=== PATIENT | male | born 1995 | race Caucasian/White ===

== ENCOUNTER 2019-03-07 19:02 | Emergency (ER) | payer OTHER ==
[2019-03-07 19:13] VITALS: BP 152/84; PULSE 100; TEMP 98.2; BMI 27.1
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
== END 2019-03-07 19:47 | disposition home or self-care (01) ==
LOC: JERFT 19:02
DX: M79.601 Pain in right arm (principal); Y35.891A Legal intervention involving other specified means, law enforcement official injured, initial encounter; X58.XXXA Exposure to other specified factors, initial encounter; Y93.89 Activity, other specified; Y92.89 Other specified places as the place of occurrence of the external cause; Y99.0 Civilian activity done for income or pay
CPT/HCPCS: 99281-25

== ENCOUNTER 2019-12-20 06:12 | Emergency (ER) | payer BC, OTHER ==
[2019-12-20] MEDS ORDERED: DIPHTH,PERTUSS(ACELL),TET 0.5 ML DISP.SYRIN IM ONE ×2 (06:29→06:50)
[2019-12-20 06:32] VITALS: BMI 29.9
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
[2019-12-20] MEDS ORDERED: TETRACAINE 0.5% OPHTH SOLN 2 ML BOTTLE ONE (06:49)
[2019-12-20 07:14] LABS: BASO % 0.3 % (0-2.0); EOS % 0.6 % (0-4.5); HEMATOCRIT 48.6 % (35.4-49); HEMOGLOBIN 16.5 GM/dL (11.7-16.9); LYMPH % 19.5 % (8-40); MCH 31.1 pg (25.7-33.7); MEAN CELL VOLUME 91.4 fl (80-96); MONO % 6.6 % (3.8-10.2); PLATELET COUNT 194 K/MM3 (134-434); RBC 5.31 M/mm3 (4.00-5.60); RDW 13.4 % (11.9-15.9); WHITE BLOOD COUNT 8.8 K/mm3 (4.0-10.0)
[2019-12-20] MEDS ORDERED: AMPICILLIN NA/SULBACTAM NA 3 GM in SODIUM CHLORIDE 100 ML IVPB ONE (07:14)
[2019-12-20 07:28] LABS: ALBUMIN 4.4 g/dl (3.4-5.0); BILIRUBIN,TOTAL 0.4 mg/dL (0.2-1); BLOOD UREA NITROGEN 12.8 mg/dL (7-18); CALCIUM 9.2 mg/dL (8.5-10.1); CREATININE 1.1 mg/dL (0.55-1.3); POTASSIUM 4.1 mmol/L (3.5-5.1); TOT PROT 7.7 g/dl (6.4-8.2)
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
[2019-12-20 07:59] LABS: INR 0.97 (0.83-1.09); PROTHROMBIN TIME (PATIENT) 11.4 SEC (9.7-13.0)
[2019-12-20 08:01] LABS: ACTIVATED PTT 31.9 SECONDS (25.2-36.5)
[2019-12-20 10:20] VITALS: BP 125/67; PULSE 76; TEMP 98.2
--- NOTE | 2019-12-21 09:36 | EKG ---
Test Reason : Blood Pressure : / mmHG Vent. Rate : 075 BPM Atrial Rate : 075 BPM P-R Int : 158 ms QRS Dur : 102 ms QT Int : 382 ms P-R-T Axes : 059 055 031 degrees QTc Int : 426 ms NORMAL SINUS RHYTHM NORMAL ECG WHEN COMPARED WITH ECG OF 22-APR-2018 10:31, NO SIGNIFICANT CHANGE WAS FOUND Confirmed by Pawan Sy ([id number]) on 12/21/2019 9:35:59 AM Referred By: Confirmed By:Pawan Sy
== END 2019-12-20 10:33 | disposition home or self-care (01) ==
LOC: JER 06:12
PROC: 3E0234Z Introduction of Serum, Toxoid and Vaccine into Muscle, Percutaneous Approach (ICD-10-PCS; principal; 2019-12-20)
PROC: 3E03329 Introduction of Other Anti-infective into Peripheral Vein, Percutaneous Approach (ICD-10-PCS; 2019-12-20)
DX: S00.83XA Contusion of other part of head, initial encounter (principal); S00.11XA Contusion of right eyelid and periocular area, initial encounter; S00.81XA Abrasion of other part of head, initial encounter; S00.01XA Abrasion of scalp, initial encounter; S61.411A Laceration without foreign body of right hand, initial encounter; Y04.2XXA Assault by strike against or bumped into by another person, initial encounter; Y93.89 Activity, other specified; Y92.59 Other trade areas as the place of occurrence of the external cause; Y99.8 Other external cause status; Y07.6 Multiple perpetrators of maltreatment and neglect
CPT/HCPCS: 36415; 70450-TC; 70486-TC; 71045-TC-FY; 71260-TC; 72125-TC; 72170-TC-FY; 73110-TC-RT-FY; 73130-TC-RT-FY; 74177-TC; 80053; 85025; 85610; 85730; 86850; 86900; 86901; 90715; 93005; 93010; 99285-25; Q9967

== ENCOUNTER 2020-05-10 02:05 | Emergency (ER) | payer BC, OTHER ==
--- NOTE | 2020-05-10 02:10 | PDOC ---
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 Patient said there was a fair amount of blood and he got it on his hands and clothes. Patient denies getting any in his mouth nose face or eyes. Patient denies any open wounds on exposed surfaces where he came in contact with the blood. 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 No smoking. No alcohol. No illicit drugs. Surgical history: None General: No fevers or chills, no weakness, no weight loss HEENT: No change in vision. No sore throat,. No ear pain CardioVascular: no chest discomfort. No shortness of breath Respiratory:No cough, or wheezing. Gastrointestinal: no nausea, vomiting, diarrhea or constipation, No rectal bleeding Genitourinary: No dysuria, hematuria, or frequency Musculoskeletal: No joint or muscle pain or swelling Neurologic: No headache, vertigo, dizziness or loss of consciousness Psychiatric: nor depression Skin: No rashes or easy bruising Endocrine: no increased thirst or abnormal weight change Allergic: no skin or latex allergy All other systems reviewed and normal GENERAL: The patient is awake, alert, and fully oriented, in no acute distress. HEENT:Head is normal with no signs of trauma. Eyes: Pupils equal, round and reactive to light, Ears, and Throat are normal. Neck is supple. No Lymphadenopathy. EXTREMITIES:atraumatic, Normal range of motion, no edema. NEUROLOGICAL: Normal speech, normal gait. PSYCH: Normal mood, normal affect. SKIN: Warm, Dry, normal turgor, no rashes or lesions noted. 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 Patient discharged we will follow-up with the police surgeon as needed. HIV prophylaxis was not given as there was no exposure to mucous membranes or open wounds Past History - Medical History Allergies/Adverse Reactions: Allergies Allergy/AdvReac Type Severity Reaction Status Date / Time No Known Allergies Allergy Verified 03/07/19 19:11 Home Medications: Ambulatory Orders Amoxicillin/Potassium Clav [Augmentin 875-125 Tablet] 1 each PO BID #20 tablet 12/20/19 COPD: No - Immunization History Immunization Up to Date: Yes - Psycho-Social/Smoking History Smoking History: Never smoked Have you smoked in the past 12 months: No Discharge - Discharge Information Problems reviewed: Yes Clinical Impression/Diagnosis: Exposure to blood or body fluid Condition: Stable Disposition: HOME - Admission No - Follow up/Referral - Patient Discharge Instructions Additional Instructions: Return to the emergency department immediately with ANY new, persistent or worsening symptoms. Continue any medications as previously prescribed by your physician. You should follow up with your primary doctor as soon as possible regarding today's emergency department visit. . Please make sure your doctor reviews the results of your emergency evaluation. Thank you for coming to the Emergency Department today for your care. It was a pleasure to see you today. Please note that your evaluation is INCOMPLETE until you follow-up with your doctor. - Post Discharge Activity Work/Back to School Note: Back to Work
[2020-05-10 04:24] VITALS: BP 135/93; PULSE 80; TEMP 98.7; BMI 26.7
== END 2020-05-10 02:35 | disposition home or self-care (01) ==
LOC: FER 02:05
DX: Z77.21 Contact with and (suspected) exposure to potentially hazardous body fluids (principal)
CPT/HCPCS: 99282-25

== ENCOUNTER 2020-12-06 23:17 | Emergency (ER) | payer OTHER ==
[2020-12-06 23:21] VITALS: BP 124/76; PULSE 65; TEMP 98.8; BMI 29.0
== END 2020-12-07 00:17 | disposition home or self-care (01) ==
LOC: FER 23:17
DX: Z77.21 Contact with and (suspected) exposure to potentially hazardous body fluids (principal)
CPT/HCPCS: 99281-25

== ENCOUNTER 2021-01-21 19:50 | Emergency (ER) | payer OTHER ==
[2021-01-21 20:04] VITALS: BP 135/80; PULSE 96; TEMP 97.8; BMI 29.0
== END 2021-01-21 20:55 | disposition home or self-care (01) ==
LOC: FER 19:50
DX: S46.912A Strain of unspecified muscle, fascia and tendon at shoulder and upper arm level, left arm, initial encounter (principal); Y04.8XXA Assault by other bodily force, initial encounter
CPT/HCPCS: 99282-25

== ENCOUNTER 2022-01-15 00:24 | Emergency (ER) | payer OTHER ==
[2022-01-15 00:43] VITALS: BP 139/91; PULSE 99; TEMP 99.6; BMI 29.9
== END 2022-01-15 01:44 | disposition home or self-care (01) ==
LOC: FER 00:24
DX: S80.01XA Contusion of right knee, initial encounter (principal); V49.50XA Passenger injured in collision with unspecified motor vehicles in traffic accident, initial encounter
CPT/HCPCS: 73562-TC-RT-FY; 99283-25

== ENCOUNTER 2022-02-13 00:25 | Emergency (ER) | payer OTHER ==
[2022-02-13 00:32] VITALS: BP 137/83; PULSE 110; TEMP 97.7; BMI 29.9
== END 2022-02-13 01:50 | disposition home or self-care (01) ==
LOC: FER 00:25
DX: S60.221A Contusion of right hand, initial encounter (principal); Y35.811A Legal intervention involving manhandling, law enforcement official injured, initial encounter
CPT/HCPCS: 73130-TC-RT-FY; 99283-25

== ENCOUNTER 2022-08-12 21:41 | Emergency (ER) | payer OTHER ==
[2022-08-12 21:46] VITALS: BP 119/80; PULSE 85; RESP 16; TEMP 98.9; BMI 29.2
[2022-08-12] MEDS ORDERED: IBUPROFEN 600 MG TABLET (FP) PO ONE ×2 (22:09→22:14)
== END 2022-08-12 22:40 | disposition home or self-care (01) ==
LOC: FER 21:41
DX: S80.02XA Contusion of left knee, initial encounter (principal); Y99.8 Other external cause status
CPT/HCPCS: 73560-TC-LT-FY; 99283-25

== ENCOUNTER 2022-08-31 23:24 | Emergency (ER) | payer OTHER ==
[2022-08-31 23:34] VITALS: BP 136/80; PULSE 108; RESP 18; TEMP 98; BMI 29.2
[2022-08-31] MEDS ORDERED: DIPHTH,PERTUSS(ACELL),TET 0.5 ML DISP.SYRIN IM ONE (23:51)
[2022-08-31] MEDS ORDERED: BACITRACIN 15 GM TUBE TOPICAL OINTMENT TP ONE (23:51)
== END 2022-09-01 00:22 | disposition home or self-care (01) ==
LOC: FER 23:24
DX: S80.211A Abrasion, right knee, initial encounter (principal); S80.212A Abrasion, left knee, initial encounter; Y99.8 Other external cause status
CPT/HCPCS: 99282-25

== ENCOUNTER 2023-01-11 17:08 | Emergency (ER) | payer OTHER ==
[2023-01-11 17:26] VITALS: BP 131/91; PULSE 87; RESP 16; TEMP 98.8; BMI 28.5
== END 2023-01-11 17:51 | disposition home or self-care (01) ==
LOC: FER 17:08
DX: S80.812A Abrasion, left lower leg, initial encounter (principal); S80.811A Abrasion, right lower leg, initial encounter; Y35.891A Legal intervention involving other specified means, law enforcement official injured, initial encounter
CPT/HCPCS: 99281-25

== ENCOUNTER 2023-03-10 02:15 | Emergency (ER) | payer OTHER ==
[2023-03-10 02:25] VITALS: BP 126/80; PULSE 79; RESP 18; TEMP 97.6; BMI 28.5
[2023-03-10] MEDS ORDERED: HIV POST EXPOSURE PROPHYLAXIS KIT NR ONE (03:27)
[2023-03-10] MEDS ORDERED: HIV POST EXPOSURE PROPHYLAXIS KIT PO ONE (03:55)
[2023-03-10 04:15] LABS: BASO % 0.7 % (0-2.0); HEMATOCRIT 46.6 % (35.4-49); HEMOGLOBIN 16.3 GM/dL (11.7-16.9); LYMPH % 27.3 % (8-40); MCH 30.3 pg (25.7-33.7); MEAN CELL VOLUME 86.5 fl (80-96); MEAN PLT VOLUME 10.2 fl (7.5-11.1); MONO % 8.8 % (3.8-10.2); NEUT % 61.2 % (42.8-82.8); PLATELET COUNT 167 10^3/uL (134-434); RBC 5.38 M/mm3 (4.00-5.60); RDW 13.8 % (11.9-15.9); WHITE BLOOD COUNT 9.2 K/mm3 (4.0-10.0)
[2023-03-10 04:31] LABS: POTASSIUM 4.5 mmol/L (3.5-5.1)
[2023-03-10 04:34] LABS: ALBUMIN 4.5 g/dl (3.4-5.0); BLOOD UREA NITROGEN 18.2 mg/dL (7-18)
[2023-03-10 04:39] LABS: TOT PROT 7.8 g/dl (6.4-8.2)
[2023-03-10 04:47] LABS: BILIRUBIN,TOTAL 0.5 mg/dL (0.2-1); CALCIUM 9.7 mg/dL (8.5-10.1)
[2023-03-10 15:01] LABS: HIV INTERPRETATION NEGATIVE (NEGATIVE)
== END 2023-03-10 05:03 | disposition home or self-care (01) ==
LOC: JER 02:15
DX: B19.10 Unspecified viral hepatitis B without hepatic coma (principal); Z77.21 Contact with and (suspected) exposure to potentially hazardous body fluids
CPT/HCPCS: 36415; 80053; 85025; 86705; 87389; 87517; 87522; 99283-25

== ENCOUNTER 2025-05-19 21:19 | Emergency (ER) | payer OTHER ==
[2025-05-19 21:40] VITALS: PULSE 84; RESP 18; TEMP 98.1; BMI 24.4
[2025-05-19] MEDS: ACETAMINOPHEN 500 MG TABLET (FP) PO ONE (21:54)
[2025-05-19 21:59] VITALS: BP 137/98
== END 2025-05-19 22:08 | disposition home or self-care (01) ==
LOC: FER 21:19
DX: S80.01XA Contusion of right knee, initial encounter (principal); Y35.811A Legal intervention involving manhandling, law enforcement official injured, initial encounter
CPT/HCPCS: 99282-25